=== PATIENT | female | born 1950 | race Caucasian/White ===

== ENCOUNTER → 2016-04-30 | Outpatient (CLI) | payer OTHER, MEDICARE ==
--- NOTE | 2016-04-30 11:34 | MR ---
MRI Lower Extremity, Left Knee History: Knee pain. Limited range of motion. Weakness. Instability. Comparison: November 08, 2015. Technique: MRI was performed of the left knee using a 1.5 [employer] MRI system. Axial, sagittal, and torsten nal images were obtained with standard imaging sequences. Findings: General: Moderate suprapatellar joint effusion. Subarticular bone marrow edema is seen in the medial compartment with a similar pattern to the prior examination. The amount of edema is slightly diminish ed over the interval. Ligaments and Tendons: Anterior cruciate and posterior cruciate ligaments are intact. Medial collater al ligament and pes anserinus are unremarkable. Iliotibial band, fibular collateral ligament, and bic eps femoris are unremarkable. Popliteus muscle and tendon are intact. Menisci and Cartilage: There is absence of a majority of the body of the medial meniscus and a large portion of the posterior horn indicating partial meniscectomy. There is abnormal signal intensity and contour abnormality at the undersurface in the remaining posterior horn at the posterior medial tor phery which could be tear or scar. There is progressive cartilage loss in the medial compartment with full-thickness cartilage loss in the central weightbearing portion. There is small area of abnormal signal intensity in the body of the lateral meniscus extending to the superior articular surface near the free edge indicating a small upper surface tear. No significant cartilage loss in the lateral compartment. Extensor Mechanism: Mild cartilage signal abnormality without attenuation is seen in the patella and trochlear groove. Quadriceps tendon is unremarkable. There is a focal area of thickening with a fusif orm appearance in the proximal to mid patellar tendon at the lateral aspect. Impression: 1. Partial meniscectomy of the medial meniscus. Scar versus undersurface tear in the remaining radiology manager ior horn at the posterior medial periphery. Progressive cartilage loss in the medial compartment in t he central weightbearing portion although there is slight diminished amount of reactive bone marrow e felix. 2. Small upper surface tear body of the lateral meniscus near the free edge. 3. 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 Mild tendinopathy patellar tendon. 4. Moderate suprapatellar joint effusion.
== END ==
LOC: FIMAGING 07:04
PROVIDERS: ATTEND Orthopaedic Surgery
DX: S83.282A Other tear of lateral meniscus, current injury, left knee, initial encounter (principal); M25.462 Effusion, left knee

== ENCOUNTER → 2016-05-28 | Outpatient (CLI) | payer OTHER, MEDICARE | LOC: FIMAGING 08:53 | PROVIDERS: ATTEND Physician Assistant | DX: Z09 Encounter for follow-up examination after completed treatment for conditions other than malignant neoplasm (principal); Z98.1 Arthrodesis status; M48.02 Spinal stenosis, cervical region ==

== ENCOUNTER → 2017-03-19 | Outpatient (CLI) | payer OTHER, MEDICARE | LOC: BMCIMAGING 13:14 | PROVIDERS: ATTEND Family Medicine | DX: Z12.31 Encounter for screening mammogram for malignant neoplasm of breast (principal) | CPT/HCPCS: G0202 ==

== ENCOUNTER → 2018-08-24 | Outpatient (CLI) | payer OTHER, MEDICARE | LOC: FIMAGING 12:18 | PROVIDERS: ATTEND Physician Assistant | DX: R10.11 Right upper quadrant pain (principal); K86.2 Cyst of pancreas; K76.0 Fatty (change of) liver, not elsewhere classified; C20 Malignant neoplasm of rectum; Z90.49 Acquired absence of other specified parts of digestive tract ==